=== PATIENT | male | born 1980 | race Caucasian/White ===

== ENCOUNTER 2016-08-28 19:05 | Emergency (ER) | payer MEDICAID ==
[~2016-08-28] VITALS: Ht 172.7 cm; Wt 63.0 kg
[~2016-08-28 19:05] MED LIST: DIVA250T4 PO; HYDR-882 PO; HYDR10TA4 PO; IBUP800T PO; PSEU120T44 PO
[2016-08-28 19:12] VITALS: BP 115/78
[2016-08-28] MEDS ORDERED: IBUPROFEN 200 MG TABLET ONE (19:52)
[2016-08-28] MEDS ORDERED: BICILLIN-LA 1,200,000 UNITS/2 ML IM ONE (20:00)
[2016-08-28] MEDS ORDERED: IBUPROFEN 200 MG TABLET PO ONE (20:00)
== END 2016-08-28 20:08 | disposition home or self-care (01) ==
LOC: ED 19:50
DX: J02.0 Streptococcal pharyngitis (principal)
CPT/HCPCS: 96372; 99283; J0561

== ENCOUNTER 2016-08-30 14:14 | Emergency (ER) | payer MEDICAID ==
[~2016-08-30] VITALS: Ht 172.7 cm; Wt 62.4 kg
[2016-08-30 15:06] VITALS: BP 146/93
== END 2016-08-30 15:29 | disposition left against medical advice (07) ==
LOC: ED 15:25
DX: J02.9 Acute pharyngitis, unspecified (principal); Z53.21 Procedure and treatment not carried out due to patient leaving prior to being seen by health care provider